=== PATIENT | male | born 1970 | race Caucasian/White ===

== ENCOUNTER 2016-12-22 17:39 | Emergency (ER) | payer SELFPAY ==
[2016-12-22] MEDS ORDERED: HYDROcodone/ACETAMIN 5-325 MG* 1 TAB PO ONE (17:47)
[2016-12-22 17:48] VITALS: BP 132/94
--- NOTE | 2016-12-22 18:18 | UC ---
Lower Extremity/Ankle HPI - HPI Summary HPI Summary: WAS STANDING ON A LADDER ABOUT 12 FEET UP AROUND 5PM TODAY WHEN THE BASE OF THE LADDER SLID OUT. PT CAME DOWN AND LANDED DIRECTLY ON BOTH FEET. HAS PAIN, SWELLING AND CAN NOT WEIGHT BEAR. - History of Current Complaint Chief Complaint: UCLowerExtremity Stated Complaint: FALL Time Seen by Provider: 12/22/16 17:57 Hx Obtained From: Patient Onset/Duration: Sudden Onset, Lasting Hours, Still Present Severity Initially: Moderate Severity Currently: Moderate Pain Intensity: 4 Pain Scale Used: 0-10 Numeric Aggravating Factor(s): Standing, Ambulation Alleviating Factor(s): Rest - Allergies/Home Medications Allergies/Adverse Reactions: Allergies Allergy/AdvReac Type Severity Reaction Status Date / Time No Known Allergies Allergy Verified 12/22/16 17:48 Home Medications: Home Medications Amlodipine Besylate [Norvasc 5 mg tab] 5 mg PO DAILY 12/22/16 [History Confirmed 12/22/16] Aspirin [Aspirin 81 MG TAB] 81 mg PO 12/22/16 [History] Atorvastatin* [Lipitor 40 MG*] 40 mg PO 1700 12/22/16 [History Confirmed ] Carvedilol TAB* [Coreg TAB*] 6.25 mg PO BID 12/22/16 [History Confirmed 12/22/16 ] Clopidogrel Bisulfate [Plavix] 75 mg PO 12/22/16 [History] PMH/Surg Hx/FS Hx/Imm Hx Endocrine History: Dyslipidemia Cardiovascular History: Cardiac Disease, Hypertension GI/ History: Renal Disease - Surgical History Surgical History: Yes Surgery Procedure, Year, and Place: hernia repair, stent placements - Family History Known Family History: Negative: Hypertension - Social History Alcohol Use: Weekly Substance Use Type: None Smoking Status (MU): Heavy Every Day Tobacco Smoker Review of Systems Constitutional: Negative Skin: Bruising Respiratory: Negative Cardiovascular: Negative Gastrointestinal: Negative Musculoskeletal: Arthralgia, Edema All Other Systems Reviewed And Are Negative: Yes Physical Exam Triage Information Reviewed: Yes Appearance: Well-Appearing, No Pain Distress, Well-Nourished Vital Signs: Initial Vital Signs Temp 97.9 F 12/22/16 17:44 Pulse 74 12/22/16 17:44 Resp 18 12/22/16 17:44 BP 132/94 12/22/16 17:44 Pulse Ox 100 12/22/16 17:44 Vital Signs Reviewed: Yes Eyes: Positive: Conjunctiva Clear ENT: Positive: Hearing grossly normal Neck: Positive: Supple Respiratory: Positive: No respiratory distress, No accessory muscle use Cardiovascular: Positive: Pulses Normal Abdomen Description: Positive: Soft Musculoskeletal: Positive: ROM Limited @, Edema @ - BILATERAL FEET, Other: - TENDER DIFFUSELY OVER BILATERAL FEET. SENSATION INTACT Neurological: Positive: Alert Psychological: Positive: Age Appropriate Behavior Skin: Positive: Other - BRUISING BILATERAL FEET. Negative: rashes Diagnostics - Radiology BILATERAL FOOT/ANKLE XRAYS Xray Interpretation: Positive (See Comments) - 1. COMMINUTED CALCANEAL FRACTURE ON THE RIGHT. 2. COMMINUTED CUBOID FRACTURE ON THE LEFT. 3. QUESTIONABLE NAVICULAR FRACTURE ON THE LEFT. Radiology Interpretation Completed By: Radiologist Lower Extremity Course/Dx - Course Course Of Treatment: DR. MODI HERE TO EVALUATE PT. ADVISED HOSPITAL ADMISSION FOR PAIN CONTROL AND ASSISTANCE WITH MOBILITY AND CT SCAN IN THE MORNING TO FURTHER ASSESS. PT DECLINED DUE TO LACK OF INSURANCE. WILL GO HOME IN [place] AND CAM BOOT ON RIGHT FOOT AND FOLLOW-UP IN DR. MODI'S OFFICE ON SATURDAY. TO ER IF UNABLE TO MANAGE AT HOME. - Differential Dx/Diagnosis Provider Diagnoses: 1. COMMINUTED CALCANEAL FRACTURE ON THE RIGHT. 2. COMMINUTED CUBOID FRACTURE ON THE LEFT. 3. NAVICULAR FRACTURE ON THE LEFT. - Physician Notifications Discussed Patient Care With: Raúl Modi - WILL COME TO TO EVALUATE PT Time Discussed With Above Provider: 18:55 Discharge - Discharge Plan Condition: Stable Disposition: HOME Prescriptions: HYDROcodone/ACETAMIN 5-325 MG* [[place] 5-325 TAB*] 1 tab PO Q6H PRN #30 tab MDD 4 PRN Reason: Pain Patient Education Materials: Foot Fracture in Adults (ED) Referrals: Raúl Modi MD [Medical Doctor] - 3 Days Additional Instructions: CALL DR. MODI'S OFFICE FIRST THING Saturday TO SCHEDULE AN OFFICE APPT WITH HIM ON SATURDAY PER HIS INSTRUCTIONS. KEEP FEET ELEVATED MUCH POSSIBLE. LIMITED WEIGHT BEARING WITH BOOT ON LEFT FOOT USING CRUTCHES. NO WEIGHT BEARING ON RIGHT FOOT. OKAY TO TAKE BOOT OFF TO SLEEP. CALL [employer] [facility] [employer] OR [employer] TO SEE IF THEY HAVE ANY EQUIPMENT YOU CAN RENT OR BORROW - WHEELCHAIR, BEDSIDE [facility] [address] [place] [address] [employer] [facility] Address: [address], [place] [address] GO TO THE ER IF YOU ARE UNABLE TO MANAGE AT HOME. CALL THE NUMBER BELOW FOR ASSISTANCE IN ESTABLISHING WITH A PCP An additional resource available to assist in finding the appropriate physician for your health care needs is the [facility] (Doreen Winston). You may contact them by calling [phone].
--- NOTE | 2016-12-22 18:35 | RAD ---
HISTORY: Bilateral ankle trauma, pain COMPARISONS: Series dated December 22, 2016 VIEWS: 6, Frontal, lateral, and oblique views of the right ankle and of the left ankle FINDINGS: Right: BONE DENSITY: Normal. BONES: Again noted is a comminuted fracture of the calcaneus with subtalar joint extension. JOINTS: There is no arthropathy. ALIGNMENT: There is no dislocation. The alignment is anatomic. SOFT TISSUES: Unremarkable. Left: BONE DENSITY: Normal. BONES: Again noted is a comminuted fracture of the cuboid. There is a questionable fracture of the navicular bone. JOINTS: There is no arthropathy. ALIGNMENT: There is no dislocation. The alignment is anatomic. SOFT TISSUES: Unremarkable. OTHER FINDINGS: None. IMPRESSION: 1. AGAIN NOTED IS A COMMINUTED FRACTURE OF THE RIGHT CALCANEUS. 2. AGAIN NOTED IS COMMINUTED FRACTURE OF THE CUBOID WITH QUESTIONABLE NAVICULAR FRACTURE.
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
[2016-12-22] MEDS ORDERED: HYDROcodone/ACETAMIN 5-325 MG* 1 TAB ONE (20:31)
--- NOTE | 2016-12-23 04:24 | CONS ---
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 when he fell off a 12-foot high ladder landing directly on both flat feet. He had sudden pain in both feet, really was unable to bear weight. He was brought by the EMT to the [facility], where he is now being evaluated. He has significant pain in the right heel and mildly on the left heel and left midfoot. He says he is able to partially bear weight on the left, but really not at all on the right. He has had no previous foot injuries. He does smoke a pack a day. MEDICATIONS: Medhat takes atorvastatin 40 mg a day, amlodipine 5 mg a day, clopidogrel 75 mg a day, carvedilol 6.25 mg 2 times a day. ALLERGIES: He has no drug allergies. He has had 2 stents 3 years ago when he was noted to have some angina with exertion. This was done down at [facility]. His law office receptionist is Dr. Bates, who is reachable supposedly at [phone]. PHYSICAL EXAMINATION: Medhat on examination has both feet up in the air. They are not ecchymotic, but they are moderately swollen through the heel, midfoot bilaterally. He has warm sensate feet. Tenderness is located diffusely at both feet through the mid foot and the heel, particularly on the right. He is able to dorsiflex and plantar flex through to a 20-degree arc, but no inversion/ eversion is feasible. IMAGING: His radiographs today show on the right where he has AP, lateral, and oblique views nonweightbearing. A comminuted, what appears to be, extraarticular calcaneus fracture. I do not see any fracture dislocation and it does not appear to involve the subtalar joint. The left foot has what appears to be a partial navicular fracture more on the plantar aspect, a cuboid fracture, possibly an intraarticular calcaneal cuboid fracture, and some irregularity at the base of second TMT, but no apparent Lisfranc fracture dislocation. ASSESSMENT AND PLAN: The patient has free care and refuses admission to the hospital. He will need CT scan of both hind feet. He may be an operative candidate, particularly on the left side. We will apply [place] wraps and boot to the left side, so that he can partial weight bear and with crutches. He does not have a wheelchair and will work on getting one Saturday morning. He has a very supportive and lives on one floor. He will have a CT scan ordered of both hind feet and then will follow up in my office in 2 days' time. [id number]/[facility] #: [id number] FERNY
== END 2016-12-22 20:50 | disposition home or self-care (01) ==
LOC: UCEAST 17:39
DX: S92.001A Unspecified fracture of right calcaneus, initial encounter for closed fracture (principal); S92.212A Displaced fracture of cuboid bone of left foot, initial encounter for closed fracture; W11.XXXA Fall on and from ladder, initial encounter; Y93.9 Activity, unspecified; Y92.9 Unspecified place or not applicable; E78.5 Hyperlipidemia, unspecified; I10 Essential (primary) hypertension; I51.9 Heart disease, unspecified; N28.9 Disorder of kidney and ureter, unspecified; Z79.82 Long term (current) use of aspirin; F17.210 Nicotine dependence, cigarettes, uncomplicated
CPT/HCPCS: 99204; G0463

== ENCOUNTER 2017-09-26 19:57 | Emergency (ER) | payer BC ==
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
[2017-09-26 22:18] VITALS: BP 142/88
== END 2017-09-26 22:17 | disposition home or self-care (01) ==
LOC: ED 19:57
DX: S02.2XXA Fracture of nasal bones, initial encounter for closed fracture (principal); W22.8XXA Striking against or struck by other objects, initial encounter; Y92.9 Unspecified place or not applicable; F17.200 Nicotine dependence, unspecified, uncomplicated; Z79.02 Long term (current) use of antithrombotics/antiplatelets
CPT/HCPCS: 70486; 99281